=== PATIENT | male | born 1995 | race Caucasian/White ===

== ENCOUNTER 2017-01-20 19:39 | Emergency (ER) | payer OTHER | END 2017-01-20 21:10 | disposition left against medical advice (07) | LOC: UCEAST 19:39 | DX: J02.9 Acute pharyngitis, unspecified (principal); Z53.21 Procedure and treatment not carried out due to patient leaving prior to being seen by health care provider ==

== ENCOUNTER 2018-01-19 13:05 | Emergency (ER) | payer BC ==
[2018-01-19 13:36] VITALS: BP 115/78
--- NOTE | 2018-01-19 14:14 | UC ---
Shoulder Pain HPI - HPI Summary HPI Summary: 23 y/o male presents to the urgent care c/o right shoulder pain on/off for few months, took it easy but pain is back. Rash on back and on trunk noticed 2-3 weeks ago and is now getting worse. - History of Current Complaint Chief Complaint: UCRash Stated Complaint: SHOULDER PAIN RASH Time Seen by Provider: 01/19/18 14:13 Hx Obtained From: Patient Onset/Duration: Gradual Onset, Lasting Weeks - 2 weeks, Still Present, Worse Since - yesterday Timing: Intermittent Episode Lasting Severity Initially: Mild Severity Currently: Mild Location Of Pain: Is Discrete @ - RT shoulder Pain Intensity: 2 Pain Scale Used: 0-10 Numeric Character: Sharp - w/ a cracking sound w/ external rotation Aggravating Factor(s): Movement, External Rotation Alleviating Factor(s): Rest, Ice, OTC Meds Associated Signs And Symptoms: Positive: Numbness/Tingling - at times. Negative : Swelling, Bruising, Fever - Risk Factors Non-Orthopedic Risk Factor: Negative DVT Risk Factors: Negative Septic Arthritis Risk Factor: Negative - Allergies/Home Medications Allergies/Adverse Reactions: Allergies Allergy/AdvReac Type Severity Reaction Status Date / Time bee venom protein (honey bee) Allergy Swelling Verified 01/19/18 13:36 PMH/Surg Hx/FS Hx/Imm Hx Previously Healthy: Yes - Pt denies PMHX - Surgical History Surgical History: Yes Surgery Procedure, Year, and Place: TWISTED BOWEL 2005 - Family History Known Family History: Positive: None - Denies heart disease/DM family history - Social History Occupation: Student Lives: With Family Alcohol Use: Weekly Substance Use Type: Marijuana Smoking Status (MU): Smoker, Current Status Unknown - Immunization History Most Recent Influenza Vaccination: Unknown Most Recent Tetanus Shot: UTD Most Recent Pneumonia Vaccination: Unknown Vaccination Up to Date: Yes Review of Systems Constitutional: Negative Skin: Rash - on his back and chest for the past week Eyes: Negative ENT: Negative Respiratory: Negative Cardiovascular: Negative Gastrointestinal: Negative Genitourinary: Negative Motor: Negative Neurovascular: Negative Musculoskeletal: Decreased ROM - RT shoulder, Other: - RT shoulder pain s/p wrestling Neurological: Negative Psychological: Negative Is Patient Immunocompromised?: No All Other Systems Reviewed And Are Negative: Yes Physical Exam - Summary Physical Exam Summary: Vital Signs Reviewed: Yes General: well developed, well nourished male adolescent sitting in the examining table w/o any apparent distress, Eyes: Positive: Conjunctiva Clear - PERRLA, EOMI, fundi grossly normal ENT: Positive: Normal ENT inspection, Hearing grossly normal, Pharynx normal, TMs normal Neck: Positive: Supple, Nontender, No Lymphadenopathy Respiratory: Positive: Chest non-tender, Lungs clear, Normal breath sounds, No respiratory distress Cardiovascular: Positive: RRR, No Murmur, Pulses Normal, Brisk Capillary Refill Abdomen Description: Positive: Nontender, No Organomegaly, Soft. Negative: CVA Tenderness (R), CVA Tenderness (L) Bowel Sounds: Positive: Present Musculoskeletal: Positive: Strength Intact, RT shoulder: The R shoulder is without obvious asymmetry or deformity when compared to the L shoulder. No surface trauma, ecchymosis, crepitus. No bony deformity or prominence of humeral head. No erythema, warmth. tender to palpation over the clavicle, scapula. and over Acromioclavicular joint and humeral head with mild swelling, NT to palpation of the bicipital groove . NT to palpation of the muscles of the sternocleidomastoid, pectoralis, tenderness over biceps/triceps, deltoid, trapezius, . Limited ROM due to pain. "empty can and drop arm test unable to perform due to pain. No axillary tenderness or lymphadenopathy. Normal sensation over the deltoid and fingers. Distal motor and neurovascular status is intact. Strength intact. Neurological Exam: Normal Psychological Exam: Normal Skin Exam: Normal Triage Information Reviewed: Yes Vital Signs: Initial Vital Signs Temp 98.7 F 01/19/18 13:31 Pulse 69 01/19/18 13:31 Resp 17 01/19/18 13:31 BP 115/78 01/19/18 13:31 Pulse Ox 96 01/19/18 13:31 Shoulder Course/Dx - Differential Dx/Diagnosis Differential Diagnosis/HQI/PQRI: Contusion, Dislocation, Fracture (Closed), Sprain, Strain, Tendonitis, Other - rash Provider Diagnoses: 1- RT shoulder pain s/p wrestling. 2-Tinea Versicolor Discharge - Discharge Plan Condition: Stable Disposition: HOME Patient Education Materials: Tinea Versicolor (ED), Shoulder Sprain (ED) Referrals: Sreekanth Adams MD [Primary Care Provider] - - Billing Disposition and Condition Condition: STABLE Disposition: Home
--- NOTE | 2018-01-19 14:54 | RAD ---
INDICATION: Right shoulder injury. TECHNIQUE: 4 views of the right shoulder were obtained. FINDINGS: The bones are in normal alignment. No fracture is seen. Joint spaces appear maintained. IMPRESSION: NO EVIDENCE OF FRACTURE.
== END 2018-01-19 15:16 | disposition home or self-care (01) ==
LOC: UCEAST 13:05
DX: M25.511 Pain in right shoulder (principal); B36.0 Pityriasis versicolor
CPT/HCPCS: 99213; G0463

== ENCOUNTER 2018-07-04 11:31 | Emergency (ER) | payer SELFPAY ==
[2018-07-04 12:34] VITALS: BP 106/57
--- NOTE | 2018-07-04 12:45 | UC ---
Respiratory Complaint HPI - HPI Summary HPI Summary: 23 yo male presents with fever, body aches, and sore throat that began yesterday. He took ibuprofen once yesterday, but none today. He missed work yesterday and today and is requesting a note for work. He has felt feverish, but has not taken his temperature. Denies sinus symptoms, cough, SOB, chest pain , abdominal pain, n/v, rash. - History of Current Complaint Chief Complaint: UCGeneralIllness Stated Complaint: SORE THROAT, CHILLS Time Seen by Provider: 07/04/18 12:44 Hx Obtained From: Patient Onset/Duration: Sudden Onset Severity Initially: Moderate Severity Currently: Moderate Pain Intensity: 6 Pain Scale Used: 0-10 Numeric - Allergies/Home Medications Allergies/Adverse Reactions: Allergies Allergy/AdvReac Type Severity Reaction Status Date / Time bee venom protein (honey bee) Allergy Swelling Verified 07/04/18 12:34 Home Medications: Home Medications NK [No Home Medications Reported] 07/04/18 [History Confirmed 07/04/18] PMH/Surg Hx/FS Hx/Imm Hx - Additional Past Medical History Additional PMH: None - Surgical History Surgical History: Yes Surgery Procedure, Year, and Place: TWISTED BOWEL 2005 - Family History Known Family History: Positive: None - Social History Occupation: Employed Full-time Lives: With Family Alcohol Use: Occasionally Substance Use Type: Marijuana Smoking Status (MU): Former Smoker - Immunization History Most Recent Influenza Vaccination: Unknown Most Recent Tetanus Shot: UTD Most Recent Pneumonia Vaccination: Unknown Vaccination Up to Date: Yes Review of Systems All Other Systems Reviewed And Are Negative: Yes Constitutional: Positive: Fever, Fatigue, Other - Body aches Skin: Positive: Negative Eyes: Positive: Negative ENT: Positive: Sore Throat Respiratory: Positive: Negative Cardiovascular: Positive: Negative Gastrointestinal: Positive: Negative Neurovascular: Positive: Negative Neurological: Positive: Negative Psychological: Positive: Negative Physical Exam - Summary Physical Exam Summary: GENERAL: NAD. Mildly ill appearing. SKIN: No rashes, sores, lesions, or open wounds. HEENT: Head: AT/NC Eyes: EOM intact. Conjunctiva clear without inflammation or discharge. Ears: Hearing grossly normal. TMs intact, no bulging, erythema, or edema. Nose: Nasal mucosa pink and moist. NTTP maxillary and frontal sinus. Throat: Posterior oropharynx with mild erythema. No exudates or tonsillar enlargement. Uvula midline. NECK: Supple. Nontender. No lymphadenopathy. CHEST: CTAB. No r/r/w. No accessory muscle use. Breathing comfortably and in no distress. CV: RRR. Without m/r/g. Pulses intact. Cap refill <2seconds NEURO: Alert. PSYCH: Age appropriate behavior. Triage Information Reviewed: Yes Vital Signs: Initial Vital Signs Temp 101.0 F 07/04/18 12:29 Pulse 108 07/04/18 12:29 Resp 18 07/04/18 12:29 BP 106/57 07/04/18 12:29 Pulse Ox 97 07/04/18 12:29 Laboratory Tests 07/04/18 07/04/18 12:55 13:24 Influenza A (Rapid) Negative Influenza B (Rapid) Negative Group A Strep Rapid Negative Vital Signs Reviewed: Yes UC Diagnostic Evaluation - Laboratory O2 Sat by Pulse Oximetry: 97 Respiratory Course/Dx - Course Course Of Treatment: POC strep and flu negative. Suspect viral/flu-like illness. Pt was given 600mg ibuprofen in the clinic and advised to alternate tylenol and ibuprofen at home for fever and general discomfort. If symptoms persist or worsen please be rechecked. - Differential Dx/Diagnosis Provider Diagnosis: Viral syndrome Discharge - Sign-Out/Discharge Documenting (check all that apply): Patient Departure All imaging exams completed and their final reports reviewed: No Studies - Discharge Plan Condition: Stable Disposition: HOME Patient Education Materials: Viral Syndrome (ED) Forms: *Work Release Referrals: Sreekanth Adams MD [Primary Care Provider] - Additional Instructions: If you develop a fever, shortness of breath, chest pain, new or worsening symptoms - please call your PCP or go to the ED. 1) Alternate tylenol and ibuprofen for your discomfort and fever. - Billing Disposition and Condition Condition: STABLE Disposition: Home
[2018-07-04] MEDS ORDERED: Ibuprofen TAB* 600 MG PO ONE (13:15)
== END 2018-07-04 13:45 | disposition home or self-care (01) ==
LOC: UCEAST 11:31
DX: B34.9 Viral infection, unspecified (principal); Z87.891 Personal history of nicotine dependence
CPT/HCPCS: 87651; 99211; A9270-GY; G0463

== ENCOUNTER 2018-11-19 19:05 | Emergency (ER) | payer BC ==
[2018-11-19 19:18] VITALS: BP 116/65
[2018-11-19] MEDS ORDERED: Ibuprofen TAB* 600 MG PO ONE ×2 (19:20→20:03)
--- NOTE | 2018-11-19 19:27 | UC ---
Hand/Wrist HPI - HPI Summary HPI Summary: injured right thumb kick boxing yesterday pain mcp joint - History Of Current Complaint Chief Complaint: UCUpperExtremity Stated Complaint: R THUMB INJURY Time Seen by Provider: 11/19/18 19:17 Hx Obtained From: Patient ?: No Mechanism Of Injury: kick boxing Onset/Duration: Sudden Onset, Lasting Days - 1 Pain Intensity: 5 Pain Scale Used: 0-10 Numeric Character Of Pain: Dull, Aching, Throbbing Aggravating Factor(s): Movement Alleviating Factor(s): Nothing Associated Signs And Symptoms: Positive: Swelling Related History: Dominant Hand Right - Allergies/Home Medications Allergies/Adverse Reactions: Allergies Allergy/AdvReac Type Severity Reaction Status Date / Time bee venom protein (honey bee) Allergy Swelling Verified 11/19/18 19:18 PMH/Surg Hx/FS Hx/Imm Hx Previously Healthy: Yes - Surgical History Surgical History: Yes Surgery Procedure, Year, and Place: TWISTED BOWEL 2005 - Family History Known Family History: Positive: None - Social History Occupation: Employed Part-time Lives: With Family Alcohol Use: Occasionally Substance Use Type: Marijuana Substance Use Comment - Amount & Last Used: daily Smoking Status (MU): Current Every Day Smoker Amount Used/How Often: Vapes Daily - Immunization History Most Recent Influenza Vaccination: Unknown Most Recent Tetanus Shot: UTD Most Recent Pneumonia Vaccination: Unknown Vaccination Up to Date: Yes Review of Systems All Other Systems Reviewed And Are Negative: Yes Constitutional: Positive: Negative Skin: Positive: Negative Eyes: Positive: Negative ENT: Positive: Negative Respiratory: Positive: Negative Cardiovascular: Positive: Negative Gastrointestinal: Positive: Negative Genitourinary: Positive: Dysuria Motor: Positive: Decreased ROM - right thumb Neurovascular: Positive: Negative Musculoskeletal: Positive: Arthralgia - right thumb Neurological: Positive: Negative Psychological: Positive: Negative Is Patient Immunocompromised?: No Physical Exam Triage Information Reviewed: Yes Appearance: Well-Appearing, Well-Nourished, Pain Distress Vital Signs: Initial Vital Signs Temp 99.5 F 11/19/18 19:12 Pulse 87 11/19/18 19:12 Resp 18 11/19/18 19:12 BP 116/65 11/19/18 19:12 Pulse Ox 98 11/19/18 19:12 Vital Signs Reviewed: Yes Eye Exam: Normal Eyes: Positive: Conjunctiva Clear ENT Exam: Normal ENT: Positive: Normal ENT inspection, Hearing grossly normal. Negative: Trismus , Muffled voice, Hoarse voice Dental Exam: Normal Neck exam: Normal Neck: Positive: Supple, Nontender, No Lymphadenopathy Respiratory Exam: Normal Respiratory: Positive: Chest non-tender, No respiratory distress, No accessory muscle use Cardiovascular Exam: Normal Cardiovascular: Positive: RRR, Pulses Normal, Brisk Capillary Refill Musculoskeletal Exam: Other Musculoskeletal: Positive: ROM Limited @, Edema @ - right thumb and hand Neurological Exam: Normal Neurological: Positive: Alert, Muscle Tone Normal Psychological Exam: Normal Skin Exam: Normal Diagnostics - Radiology No standard instances Radiology Interpretation Completed By: ED Physician - avulsion fx Hand/Wrist Course/Dx - Course Course Of Treatment: thumb spica, sling, rice, follow with orthopedic in 2-3 days ---ibuprofen for pain, light duty work if none available will need to be out of work until cleared by orthopedic MD - Differential Dx/Diagnosis Provider Diagnosis: Avulsion fracture of right thumb Discharge - Sign-Out/Discharge Documenting (check all that apply): Patient Departure All imaging exams completed and their final reports reviewed: No - Discharge Plan Condition: Stable Disposition: HOME Prescriptions: Ibuprofen TAB* [Motrin TAB* 600 MG] 600 mg PO Q6H PRN #40 tab PRN Reason: Pain Patient Education Materials: Skier's Thumb (ED), Thumb Fracture (ED), R.I.C.E. Treatment (ED) Forms: *School Release Referrals: Vibha Rogers MD [Medical Doctor] - 2 Days - Billing Disposition and Condition Condition: STABLE Disposition: Home
--- NOTE | 2018-11-20 09:37 | UC ---
- Progress Note Progress Note: final report on x-ray of the right thumb reviewed: Initially read as negative. I spoke to Dr. Martinez, confirmed an avulsion fracture of the distal end of the first metacarpal. he will make an addendum. Wet read correct No change in plan Course/Dx - Diagnoses Provider Diagnoses: Avulsion fracture of right thumb Discharge - Sign-Out/Discharge Documenting (check all that apply): Post-Discharge Follow Up All imaging exams completed and their final reports reviewed: Yes - Discharge Plan Condition: Stable Disposition: HOME Prescriptions: Ibuprofen TAB* [Motrin TAB* 600 MG] 600 mg PO Q6H PRN #40 tab PRN Reason: Pain Patient Education Materials: Skier's Thumb (ED), Thumb Fracture (ED), R.I.C.E. Treatment (ED) Forms: *School Release Referrals: Vibha Rogers MD [Medical Doctor] - 2 Days - Billing Disposition and Condition Condition: STABLE Disposition: Home
== END 2018-11-19 20:15 | disposition home or self-care (01) ==
LOC: UCEAST 19:05
DX: S62.501A Fracture of unspecified phalanx of right thumb, initial encounter for closed fracture (principal); F17.200 Nicotine dependence, unspecified, uncomplicated; Z91.030 Bee allergy status; X58.XXXA Exposure to other specified factors, initial encounter; Y93.75 Activity, martial arts; Y92.9 Unspecified place or not applicable
CPT/HCPCS: 99212; A9270-GY; G0463

== ENCOUNTER 2019-02-11 17:10 | Emergency (ER) | payer BC ==
--- NOTE | 2019-02-11 17:29 | ED ---
Substance Abuse/Use - HPI Summary HPI Summary: A 24 y/o male accompanied by parents presents to [facility] with a chief complaint of reportedly taking 5 Xanax of an unknown dosage. He said that he got the Xanax from a friend, as he wasn't prescribed it, and said that he took it claiming that he is either going to be "messed up or while on the best trip of (his) life". Per mother, the patient sent a video of himself taking the Xanax to his ex-girlfriend where he also expressed SI. The mother reports that at first he told her that he took 2 Xanax, but then he said that he took 5. His mother saw that he was groggy and stumbling and so she took him to the ED. The patient also has self-harm scars on his left hand. 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 He has been self-medicating. 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 He also reports that he vapes and uses marijuana. - History Of Current Complaint Stated Complaint: OVERDOSE PER MOM Hx Obtained From: Patient, Family/Grass Cutter Onset/Duration of Drug/ETOH Abuse: Hours Ingestion History: Type/Name Of Drug - Xanax, Amount Ingested - 5 reported by mom Overdose Characteristics: Oral Timing Of Abuse: Binge Use Severity Initially: Mild Severity Currently: Mild Character: Depressed Aggravating Factor(s): Nothing Alleviating Factor(s): Nothing Associated Signs And Symptoms: Other: - SI - Allergies/Home Medications Allergies/Adverse Reactions: Allergies Allergy/AdvReac Type Severity Reaction Status Date / Time bee venom protein (honey bee) Allergy Swelling Verified 11/19/18 19:18 PMH/Surg Hx/FS Hx/Imm Hx Endocrine/Hematology History: Denies: Hx Diabetes, Hx Thyroid Disease Cardiovascular History: Denies: Hx Hypertension, Hx Pacemaker/ICD Respiratory History: Denies: Hx Asthma, Hx Chronic Obstructive Pulmonary Disease (COPD) GI History: Denies: Hx Ulcer History: Denies: Hx Renal Disease Sensory History: Denies: Hx Hearing Aid Psychiatric History: Reports: Hx Attention Deficit Hyperactivity Disorder, Hx Bipolar Disorder Denies: Hx Eating Disorder, Hx Panic Disorder, Hx of Violent Episodes Against Others - Surgical History Surgery Procedure, Year, and Place: TWISTED BOWEL 2006 Infectious Disease History: Denies: Hx Hepatitis, Hx Human Immunodeficiency Virus (HIV), History Other Infectious Disease - Family History Known Family History: Negative: Hypertension, Diabetes - Social History Alcohol Use: Occasionally Hx Substance Use: Yes Substance Use Type: Reports: Marijuana Substance Use Comment - Amount & Last Used: daily Smoking Status (MU): Current Every Day Smoker Amount Used/How Often: Vapes Daily Review of Systems Negative: Fever Neurological: Other - positive: Pt was groggy and stumbling per mother Psychological: Other - positive: took 5 Xanax of unknown dosage MUSIC INTERN, SI All Other Systems Reviewed And Are Negative: Yes Physical Exam - Summary Physical Exam Summary: VITAL SIGNS: Reviewed. GENERAL: Patient is a well-developed and nourished MALE who is lying comfortable in the stretcher. Patient is not in any acute respiratory distress. HEAD AND FACE: No signs of trauma. No ecchymosis, hematomas or skull depressions. No sinus tenderness. EYES: PERRLA, EOMI x 2, No injected conjunctiva, no nystagmus. EARS: Hearing grossly intact. Ear canals and tympanic membranes are within normal limits. MOUTH: Oropharynx within normal limits. NECK: Supple, trachea is midline, no adenopathy, no JVD, no carotid bruit, no c- spine tenderness, neck with full ROM. CHEST: Symmetric, no tenderness at palpation. LUNGS: Clear to auscultation bilaterally. No wheezing or crackles. CVS: Regular rate and rhythm, S1 and S2 present, no murmurs or gallops appreciated. ABDOMEN: Soft, non-tender. No signs of distention. No rebound, no guarding, and no masses palpated. Bowel sounds are normal. EXTREMITIES: FROM in all major joints, no edema, no cyanosis or clubbing. NEURO: Alert and oriented x 3. No acute neurological deficits. Speech is normal and follows commands. SKIN: Dry and warm. Psych: Pt appears high and drugged Triage Information Reviewed: Yes Vital Signs Reviewed: Yes Diagnostics - Laboratory Result Diagrams: 02/11/19 17:37 02/11/19 17:37 Lab Statement: Any lab studies that have been ordered have been reviewed, and results considered in the medical decision making process. Course/Dx - Course Assessment/Plan: A 24 y/o male accompanied by parents presents to [facility] with a chief complaint of reportedly taking 5 Xanax of an unknown dosage. He said that he got the Xanax from a friend, as he wasn't prescribed it, and said that he took it claiming that he is either going to be "messed up or while on the best trip of (his) life". Per mother, the patient sent a video of himself taking the Xanax to his ex-girlfriend where he also expressed SI. The mother reports that at first he told her that he took 2 Xanax, but then he said that he took 5. His mother saw that he was groggy and stumbling and so she took him to the ED. The patient also has self-harm scars on his left hand. 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 He has been self-medicating. 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 He also reports that he vapes and uses marijuana. Blood work w/o a significant abnormality. He is medically cleared. He is awaiting a MHE. Patient is hemodynamically stable and A+O x 3. Patient will be signed out to Dr. Doherty for the patient to be clear after 6 hours of observation and await for mental health evaluation. - Diagnoses Provider Diagnoses: Overdose, Substance induced mood disorder Discharge - Sign-Out/Discharge Documenting (check all that apply): Sign-Out Patient Signing out patient TO: Yajaira Kennedy - pending medical clearance and MHE. Patient Received Moderate/Deep Sedation with Procedure: No - Discharge Plan Condition: Stable Disposition: HOME Patient Education Materials: Benzodiazepine Abuse (ED), Mood Disorders (ED), Cannabis Abuse (ED), Help Prevent Suicide (ED) Referrals: Sreekanth Adams MD [Primary Care Provider] - - Billing Disposition and Condition Condition: STABLE - Attestation Statements Document Initiated by Scribe: Yes Documenting Scribe: Evan Lewis Provider For Whom Tim is Documenting (Include Credential): Natanael Garcia MD Scribe Attestation: Evan Macario, scribed for Natanael Garcia MD on 02/12/19 at 1122. Scribe Documentation Reviewed: Yes Provider Attestation: The documentation as recorded by the Evan boone accurately reflects the service I personally performed and the decisions made by me, Natanael Garcia MD Status of Scribe Document: Viewed
[2019-02-11] MEDS ORDERED: NS 0.9% 1000 ML** 1,000 ML IV ONE (17:30)
[2019-02-11 17:43] LABS: ABS Basophils 0.1 10^3/ul (0-0.2); ABS Lymphocytes 1.9 10^3/ul (1.0-4.8); ABS Monocytes 0.5 10^3/ul (0-0.8); ABS Neutrophils 5.5 10^3/ul (1.5-7.7); Eosinophil % 0.4 %; Hematocrit 45 % (42-52); Hemoglobin 15.4 g/dL (14.0-18.0); Lymphocyte % 23.7 %; Mean Corpuscular HGB Conc 35 g/dL (31-36); Mean Corpuscular Hemoglobin 31 pg (27-31); Mean Corpuscular Volume 89 fL (80-94); Mean Platelet Volume 9.9 fL (7.4-10.4); Platelet Count 231 10^3/uL (150-450); Red Blood Count 4.98 10^6 /uL (4.18-5.48); Red Cell Distribution Width 12 % (10-15)
[2019-02-11 17:54] LABS: Urine Appearance Clear; Urine Bilirubin Negative (Negative); Urine Blood Negative (Negative); Urine Color Straw; Urine Glucose Negative (Negative); Urine Ketones Negative (Negative); Urine Nitrite Negative (Negative); Urine Protein Negative (Negative); Urine Specific Gravity 1.004 (1.010-1.030); Urine Urobilinogen Negative (Negative)
[2019-02-11 18:03] LABS: ALT 16 U/L (7-52); AST 17 U/L (13-39); Albumin 4.7 g/dL (3.2-5.2); Albumin/Globulin Ratio 1.5 (1-3); Alkaline Phosphatase 71 U/L (34-104); Anion Gap 5 mmol/L (2-11); BUN/Creatinine Ratio 11.3 (8-20); Blood Urea Nitrogen 11 mg/dL (6-24); CO2 Carbon Dioxide 31 mmol/L (22-32); Chloride 104 mmol/L (101-111); Creatine Kinase 65 U/L (10-223); EGFR African American 117.1 (>60); EGFR Non-African American 96.8 (>60); Globulin 3.2 g/dL (2-4); Glucose 75 mg/dL (70-100); Potassium 3.8 mmol/L (3.5-5.0); Sodium 140 mmol/L (135-145); Total Protein 7.9 g/dL (6.4-8.9)
[2019-02-11 18:11] LABS: Urine Benzodiazepine Screen Presumptive Positive (None Detect); Urine Opiates Screen None Detected (None Detect)
[2019-02-11 18:27] LABS: Acetaminophen < 15 mcg/mL; Alcohol < 10 mg/dL (<10); Salicylate < 2.50 mg/dL (<30)
[2019-02-11 18:42] LABS: TSH (Thyroid Stimulating Horm) 0.67 mcIU/mL (0.34-5.60)
[2019-02-12 02:02] VITALS: BP 119/77
--- NOTE | 2019-02-12 07:46 | ED ---
Progress - Progress Note Progress Note: The patient is a sign-out from Dr. Natanael Garcia MD, to Dr. Yajaira Manzano MD, at change of shift at 2200 on 02/11/2019, pending medical clearance, MHE, and disposition. The patient is medically clear at 2340. Mental health auricular acupuncturist reports that Dr. Minor has cleared the for discharge with dx of substance abuse mood disorder. He'll follow up with outpatient therapists. - Consult/PCP Time Called: 23:40 Re-Evaluation - Re-Evaluation First Eval Re-Evaluation Time: 23:40 Comment: Patient is medically clear. Course/Dx - Course Course Of Treatment: The patient is a sign-out from Dr. Natanael Garcia MD, to Dr. Yajaira Kennedy MD, at change of shift at 2200 on 02/11/2019, pending medical clearance, MHE, and disposition. The patient is medically clear at 2340. Mental health auricular acupuncturist reports that Dr. Minor has cleared the for discharge with dx of substance abuse mood disorder. He'll follow up with outpatient therapists. - Diagnoses Provider Diagnoses: Overdose, Substance induced mood disorder Discharge - Sign-Out/Discharge Documenting (check all that apply): Patient Departure - Patient will be discharged home., Receiving Sign-Out Receiving patient FROM: Natanael Garcia - Patient is a sign-out from Dr. Garcia at shift change pending medical clearance, MHE, and disposition. Patient Received Moderate/Deep Sedation with Procedure: No - Discharge Plan Condition: Stable Disposition: HOME Patient Education Materials: Benzodiazepine Abuse (ED), Mood Disorders (ED), Cannabis Abuse (ED), Help Prevent Suicide (ED) Referrals: Sreekanth Adams MD [Primary Care Provider] - - Billing Disposition and Condition Condition: STABLE Disposition: Home - Attestation Statements Document Initiated by Tim: Yes Documenting Stevenibluis manuel: Bing Gaytan Provider For Whom Tim is Documenting (Include Credential): Dr. Yajaira Kennedy MD Scribe Attestation: Bing Macario scribed for Dr. Yajaira Kennedy MD on 02/12/19 at 0837. Scribe Documentation Reviewed: Yes Provider Attestation: The documentation as recorded by the Bing boone accurately reflects the service I personally performed and the decisions made by me, Dr. Yajaira Kennedy MD Status of Scribe Document: Viewed
== END 2019-02-12 02:00 | disposition home or self-care (01) ==
LOC: ED 17:10
DX: T42.4X2A Poisoning by benzodiazepines, intentional self-harm, initial encounter (principal); F13.94 Sedative, hypnotic or anxiolytic use, unspecified with sedative, hypnotic or anxiolytic-induced mood disorder; F17.290 Nicotine dependence, other tobacco product, uncomplicated
CPT/HCPCS: 36415; 80053; 80307; 80320; 80329; 81003; 82550; 83605; 84443; 85025; 93005; 96360; 96361; 99285; G0480